=== PATIENT | male | born 1970 | race Caucasian/White ===

== ENCOUNTER 2019-12-20 15:35 | Emergency (ER) | payer BC, SELFPAY ==
[2019-12-20 15:36] VITALS: BP 135/93; PULSE 102; RESP 18; TEMP 35.9; O2SAT 95; BMI 33.7
--- NOTE | 2019-12-20 16:33 | ED.VIS.GEN ---
History of Present Illness Chief Complaint: Cellulitis Current Severity: Moderate Maximum Severity: Moderate Narrative: 49-year-old male presents with cellulitis on his left leg. He states he has had this multiple times in the past. He states that he feels otherwise well right now. He thought he might of had a fever earlier. 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 He states he called his PCPs office who would not write a prescription for antibiotics unless he was seen. He could not see him. He went to the urgent care and the urgent care sent him to the emergency room. Past Medical History - Allergies and Home Meds Allergies/Adverse Reactions: Allergies No Known Allergies Allergy (Verified 12/20/19 15:39) Primary Care Physician: Mayra Rodgers PA [Primary Care Provider] - Review of Systems General: Reports: Chills. Denies: Fever, Malaise Eyes: Denies: Visual changes - bilaterally, Diplopia ENT: Denies: Rhinorrhea, Sore throat Cardiovascular: Denies: Chest pain, Palpitations Respiratory: Denies: Dyspnea, Cough, Dyspnea on exertion Gastrointestinal: Denies: Abdominal pain Musculoskeletal: Reports: Extremity Pain - Lower extremity pain Skin: Reports: Rash - Left leg Neurological: Denies: Headache Psych: Denies: Depression Endocrine: Denies: Polyuria, Polydipsia Hematologic: Denies: Easy bruising Physical Exam Vital Signs/Narrative: Vital Signs Temp Pulse Resp BP Pulse Ox 12/20/19 15:36 96.7 F L 102 H 18 135/93 H 95 Inital Vital Signs reviewed: Yes General: Well nourished, Well developed Head: Normocephalic, Atraumatic ENT: Moist mucous membranes Cardiovascular: Regular rate, Regular rhythm Respiratory: No distress Extremities: Tenderness - Left leg over the calf Skin: Rash - Leg erythema and tenderness to palpation over the calf and lateral aspect of the calf. Neurological: Alert, Oriented x3 Diagnostic/Tx/Re-eval - Medical Decision Making Seen and evaluated for cellulitis of the left lower extremity. Patient states he has had this multiple times. It always resolves with Keflex. He feels otherwise well. I will start him on Keflex with the first dose in the ED. He is given return precautions. Patient stable for discharge at this time. ED Disposition - Plan for ED Patient: Disposition: Home or Assisted Living Diagnosis: Cellulitis Instructions: Cellulitis Prescriptions: Cephalexin [Keflex] 500 mg PO Q6 #40 cap Prescription Printed Referrals: Mayra Rodgers PA [Primary Care Provider] -
[2019-12-20] MEDS: Cephalexin 250 MG Capsule 500 MG PO (17:08)
[2019-12-20 17:09] VITALS: RESP 18
== END 2019-12-20 17:10 | disposition home or self-care (01) ==
LOC: ED 16:53
PROVIDERS: Emergency Provider Student in an Organized Health Care Education/Training Program; PCP Physician Assistant
DX: L03.116 Cellulitis of left lower limb (principal)
CPT/HCPCS: 99283

== ENCOUNTER 2020-04-14 16:40 | Emergency (ER) | payer OTHER, BC, SELFPAY ==
[2020-04-14 16:41] VITALS: BP 150/111; PULSE 91; PULSE 94; RESP 16; RESP 18; TEMP 36.5; O2SAT 99; BMI 34.0
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
== END 2020-04-14 17:38 | disposition home or self-care (01) ==
PROVIDERS: Emergency Provider Physician Assistant; PCP Physician Assistant
DX: S46.912A Strain of unspecified muscle, fascia and tendon at shoulder and upper arm level, left arm, initial encounter (principal); R51.9 Headache, unspecified; I10 Essential (primary) hypertension; F17.200 Nicotine dependence, unspecified, uncomplicated; V43.52XA Car driver injured in collision with other type car in traffic accident, initial encounter; Y93.I9 Activity, other involving external motion; Y92.410 Unspecified street and highway as the place of occurrence of the external cause; Y99.8 Other external cause status
CPT/HCPCS: 73030; 99282

== ENCOUNTER → 2023-04-30 | Outpatient (CLI) | payer OTHER, SELFPAY ==
--- NOTE | 2023-04-30 16:43 | US_ITS ---
INDICATION: AXILLARY LYMPHADENOPATHY -- L ONLY EXAMINATION: Left axillary ultrasound HISTORY: Axillary adenopathy. Tender to palpation. History of stage III metastatic melanoma 24 years ago. COMPARISON: No relevant prior comparison study available TECHNIQUE: Routine and color duplex imaging with spectral analysis. FINDINGS: Scanning of the area of interest shows a 1.1 x 1.2 x 0.7 cm ovoid area of hyperechoic skin thickening, surrounding a 3.5 mm lobulated central hypoechoic focus, suspicious for small cutaneous abscess. Multiple left axillary lymph nodes are present, demonstrating fatty thiago; these nodes measure 4.1 x 2.7 x 1.8 cm, 3.4 x 2.6 x 1.3 cm, and 2.3 x 1.2 x 0.9 cm. US/Ext Non Vasc Limited/Soft Tiss IMPRESSION: Skin thickening surrounding a 3.5 mm lobulated hypoechoic focus, suspicious for a small cutaneous abscess. Prominent left axillary nodes which show benign fatty thiago. Electronically Signed: Hilton Soriano MD at 23:07 EST ,
== END | disposition home or self-care (01) ==
LOC: US 16:41
PROVIDERS: PCP Physician Assistant; Visit Provider Nurse Practitioner Family
DX: R10.13 Epigastric pain (principal); R07.89 Other chest pain; R59.0 Localized enlarged lymph nodes
CPT/HCPCS: 76882

== ENCOUNTER 2025-03-08 01:30 | Emergency (ER) | payer OTHER, SELFPAY ==
[2025-03-08 01:31] VITALS: BP 135/90; PULSE 78; RESP 18; TEMP 36.9; O2SAT 100; BMI 37.5
--- NOTE | 2025-03-08 01:45 | EDS_ITS ---
HPI History of Present Illness Chief Complaint: Upper Extremity Injury Narrative Narrative: Chief complaint and HPI: 54-year-old male with past medical history of HTN presents for evaluation of right shoulder pain. Patient states yesterday he developed pain in his right shoulder. He does not specifically remember lifting anything heavy or any trauma. He he states he fell asleep on the shoulder and woke up with increased pain. He denies any fever, chills, shortness of breath, chest pain, neck pain, numbness/tingling. Pain is worse with movement especially lifting the arm. He states that he recently had left shoulder pain which he got a cortisone injection from an orthopedic physician. Review of systems: See HPI Medications: As listed on the chart Allergies: As listed on the chart PFSH: Per chart Vital signs: As listed on the chart. Reviewed. Physical exam: Gen: A&O x3, NAD Head: Normocephalic, atraumatic Eyes: No sclera icterus, conjunctiva clear ENT: Moist mucous membranes Neck: Trachea midline, full range of motion, nontender CV: RRR, no murmurs Resp: Lungs CTA BL, no w/r/c Musc: Limited active range of motion of the right upper extremity secondary to right shoulder pain-patient has pain lifting his arm above 90 degrees and with putting his arm behind his back-when performing these tasks he points to his rotator cuff muscles of where his pain is located, full passive range of motion, deltoid and biceps muscle intact, radial pulse +2, good capillary refill, compartments soft, sensation intact, shoulder joint without warmth, erythema, swelling, no crepitus or clicking of the shoulder, no external signs of trauma, no midline spinal tenderness, no bony step-offs, mildly tender to palpation over the rotator cuff muscles Skin: Warm, dry Neuro: Alert, oriented, grossly intact, sensation intact Psych: Cooperative, appropriate mood and affect [facility] Medical History (Updated 03/08/25 @ 01:35 by Corrina Story) Cancer Lymph edema HTN (hypertension) Home Medications ?Medication ?Instructions ?Recorded ?Last Taken ?Type aspirin 81 mg chewable tablet 81 mg PO DAILY 12/20/19 Unknown History furosemide 20 mg tablet 20 mg PO DAILY 12/20/19 Unkn own History multivitamin 1 ea PO DAILY 12/20/19 Unkno wn History losartan 100 mg tablet 100 mg PO DAILY 03/08/25 Unk nown History Allergy/AdvReac Type Severity Reaction Status Date / Time No Known Allergies Allergy Verified 12/20/19 15:39 Social History Smoking Status: Current every day smoker tobacco type: cigarettes EXAM Physical Exam Const Vital Signs: 03/08/25 01:31 Temperature 98.4 F Temperature Source Oral Pulse Rate 78 Respiratory Rate 18 Blood Pressure 135/90 H Blood Pressure Mean 105 Pulse Ox 100 Oxygen Delivery Method Room Air MDM MDM MDM Narrative Medical decision making narrative: 54-year-old male with past medical history of HTN presents for evaluation of right shoulder pain. Patient states yesterday he developed pain in his right shoulder. He does not specifically remember lifting anything heavy or any trauma. He he states he fell asleep on the shoulder and woke up with increased pain. He denies any fever, chills, shortness of breath, chest pain, neck pain, numbness/tingling. Pain is worse with movement especially lifting the arm. He states that he recently had left shoulder pain which he got a cortisone injection from an orthopedic physician. On presentation, patient no acute distress. See physical exam findings. Differential diagnosis includes but is not limited to myofascial spasm, muscle strain, rotator cuff injury/tear. Shoulder is not dislocation. Low suspicion for fracture. I do not think any x- ray of the shoulder is needed however this was discussed with the patient and he declined x-ray as well. Recommended IM Toradol and muscle relaxer. Patient drove today therefore he cannot have muscle relaxer. He declined a prescription for muscle relaxer for home as well as declined lidocaine patch. He was told to follow-up with his orthopedic surgeon. Return back to ED if symptoms change or worsen. Recommended IcyHot and heating pad as needed. Gentle stretching. He confirmed understanding of the plan. Patient stable to discharge home. Impression: 1. Right shoulder pain Discharge Plan Triage Chief Complaint: Upper Extremity Injury ED Provider: Fabián Caba Dx/Rx/DC Orders Prescriptions: No Action multivitamin 1 EACH tablet 1 ea PO DAILY aspirin 81 MG tablet,chewable 81 mg PO DAILY furosemide 20 MG tablet 20 mg PO DAILY losartan 100 mg tablet 100 mg PO DAILY Primary Care Provider: Mayra Rodgers Referrals: Mayra Rodgers PA [Primary Care Provider, Medical] Print Language: Pakistani
[2025-03-08] MEDS: Ketorolac 30 MG/ML Syringe IM (01:46)
[2025-03-08 02:22] VITALS: BP 125/89; PULSE 73; RESP 18; TEMP 36.9; O2SAT 95
== END 2025-03-08 02:23 | disposition home or self-care (01) ==
LOC: ED 02:04
PROVIDERS: Emergency Provider Surgery; PCP Registered Nurse; Visit Provider Surgery
DX: M25.511 Pain in right shoulder (principal); F17.210 Nicotine dependence, cigarettes, uncomplicated; I10 Essential (primary) hypertension
CPT/HCPCS: 96372; 99282